=== PATIENT | male | born 1960 | race Caucasian/White ===

== ENCOUNTER 2024-03-07 17:37 | Emergency (ER) | payer BC, SELFPAY ==
[2024-03-07 17:39] VITALS: BP 164/95
--- NOTE | 2024-03-07 17:39 | ED.GENMED ---
ED Provider Triage
<Sana Guerra PA-C - Last Filed: 03/09/24 10:00>
-
Patient seen by provider in Triage?: Seen in Triage
Attestation: A medical screening examination has been initiated by a qualified medical provider. Based on the assessment performed at this time, it has been determined that an emergent medical condition may exist and the patient has been informed
that further medical evaluation and possible additional diagnostic testing may be needed.
HPI: 63yoM here after a fall off a ladder 1 hour ago. Fell 9 feet onto L side. +Head strike. No LOC. No blood thinners. C/o headache, L shoulder pain, L rib pain.
GENERAL: Alert , in no apparent distress
EYE: No visual abnormalities.
NECK: Trachea midline
ENT: No visible abnormalities.
LUNGS: No acute respiratory distress
NEUROLOGICAL: Alert and oriented
SKIN: Skin intact. No visible changes.
MUSCULOSKELETAL: Moving extremities normally
PSYCH: Normal and appropriate interaction.
This is a medical evaluation conducted in person to initiate diagnostic evaluation and provide initial therapeutics. Please see further documentation by the treating clinician.
CT head, CT cervical spine, CT chest, and L shoulder/clavicle x-rays ordered.
History of Present Illness
<Sana Guerra PA-C - Last Filed: 03/09/24 10:00>
General
Chief Complaint: Fall
Time Seen by Provider: 03/07/24 20:41
<Jah Puentes PA-C - Last Filed: 03/07/24 23:09>
General
Source: patient
History of Present Illness
History of Present Illness:
63-year-old male with past medical history of hypertension presenting to the emergency department after he fell approximately 9 feet from a ladder onto the left side of his body noting pain to the left shoulder/clavicle region as well as mild
headache and a feeling 'somewhat out of it'. Patient was at home at time of injury. Denies any loss of consciousness, vomiting, vision changes. No use of anticoagulants. No other extremity related injuries. Did not take anything for pain prior
to arrival.
Past History
<Sana Guerra PA-C - Last Filed: 03/09/24 10:00>
Past History
ED Past Medical History: HTN and Hypercholesterolemia
ED Past Surgical History: None and Tonsilectomy
Patient has exhibited threatening behavior?: No
PSI?: No
Social History
Tobacco: Non-smoker
<Jah Puentes PA-C - Last Filed: 03/07/24 23:09>
Past History
ED Past Surgical History: Appendectomy
Social History
Alcohol: Occasional
Drug: None
Personal:
Living: with family
Review of Systems
<Jah Puentes PA-C - Last Filed: 03/07/24 23:09>
Review of Systems
All Other Systems: ROS reviewed and negative except as documented in HPI and ROS
Phy Exam
<Jah Puentes PA-C - Last Filed: 03/07/24 23:09>
Physical Exam
Physical Exam:
GENERAL: Alert , in no apparent distress
EYE: clear conjunctiva b/l
HEAD: NCAT
NECK: Mild left paracervical tenderness
ENT: o/p clr, mmm.
CARDIAC: Regular rate and rhythm .
LUNGS: Clear breath sounds bilaterally, no acute respiratory distress, no wheezes/rales/rhonchi
ABDOMEN: Soft, without focal tenderness, no r/g, no cvat
NEUROLOGICAL: Alert and oriented
SKIN: Warm and dry, skin intact.
MUSCULOSKELETAL: No edema, well perfused. Tenderness over the left AC joint and somewhat limited range of motion left shoulder secondary to pain but extremities otherwise warm and well-perfused and neurovascularly intact
PSYCH: Normal and appropriate interaction.
Scores
<Jah Puentes PA-C - Last Filed: 03/07/24 23:09>
Heart Failure Risk
Heart Failure Risk Score: Not Applicable
Heart Score for Chest Pain Patients
STEMI patient?: Not applicable
Withdrawal Assessment of Alcohol
Withdrawal Assessment Completed?: Not applicable
Course
<Sana Guerra PA-C - Last Filed: 03/09/24 10:00>
Orders/Labs/Results
Orders:
Orders
03/07/24 17:43
CT Cervical Spine W/o Iv Contr Urgent
Comment:
Reason For Exam: Neck pain, fell off ladder
CT Chest W/o Iv Contrast Urgent
Comment:
Reason For Exam: L sided rib pain, fall off ladder
CT Head W/o Iv Contrast Urgent
Comment:
Reason For Exam: Head injury, fell off ladder
CR Shoulder - Left Min 2 View* Urgent
Comment:
Reason For Exam: fall off ladder
Clavicle Complete, Left CR [CR Clavicle - Left Complete ] Urgent
Comment:
Reason For Exam: fall off ladder
03/07/24 21:42
Sling Left-Treatment ONCE
03/07/24 21:45
CT Head W/o Iv Contrast Urgent
Comment:
Reason For Exam: 4 mm hyperdensity inferior right cerebellar region
Vital Signs
Initial and Last Documented VS:
Initial Vital Signs
Temp Pulse Resp BP Pulse Ox
98.0 F 86 18 164/95 97
03/07/24 17:39 03/07/24 17:39 03/07/24 17:39 03/07/24 17:39 03/07/24 17:39
Last Documented Vital Signs
Temp Pulse Resp BP Pulse Ox
98.1 F 66 18 137/91 98
03/07/24 19:50 03/07/24 23:13 03/07/24 17:39 03/07/24 23:13 03/07/24 23:13
<Jah Puentes PA-C - Last Filed: 03/07/24 23:09>
Orders/Labs/Results
Orders:
Orders
03/07/24 17:43
CT Cervical Spine W/o Iv Contr Urgent
Comment:
Reason For Exam: Neck pain, fell off ladder
CT Chest W/o Iv Contrast Urgent
Comment:
Reason For Exam: L sided rib pain, fall off ladder
CT Head W/o Iv Contrast Urgent
Comment:
Reason For Exam: Head injury, fell off ladder
CR Shoulder - Left Min 2 View* Urgent
Comment:
Reason For Exam: fall off ladder
Clavicle Complete, Left CR [CR Clavicle - Left Complete ] Urgent
Comment:
Reason For Exam: fall off ladder
03/07/24 21:42
Sling Left-Treatment ONCE
03/07/24 21:45
CT Head W/o Iv Contrast Urgent
Comment:
Reason For Exam: 4 mm hyperdensity inferior right cerebellar region
Vital Signs
Initial and Last Documented VS:
Initial Vital Signs
Temp Pulse Resp BP Pulse Ox
98.0 F 86 18 164/95 97
03/07/24 17:39 03/07/24 17:39 03/07/24 17:39 03/07/24 17:39 03/07/24 17:39
Last Documented Vital Signs
Temp Pulse Resp BP Pulse Ox
98.1 F 66 18 137/91 98
03/07/24 19:50 03/07/24 23:13 03/07/24 17:39 03/07/24 23:13 03/07/24 23:13
<Jah Puentes PA-C - Last Filed: 03/07/24 23:09>
MDM/Problems Addressed
Differential Diagnosis Includes:
Contusion, concussion, intracranial bleeding, clavicle fracture, AC joint separation/sprain, rib fractures
MDM/Problems Addressed:
63-year-old male presenting to the emergency department for evaluation after 9ft fall from a ladder. Patient noting left-sided pain mostly around the left shoulder area. Did have head injury but no reported loss consciousness. Given the mechanism
head, cervical spine and chest CT were ordered. X-rays of the shoulder and clavicle ordered. Patient declining anything for pain.
<Jah Puentes PA-C - Last Filed: 03/07/24 23:09>
*Radiology
Radiology exam reviewed: radiology read reviewed
*Pulse Oximetry
Patient hypoxic: no
*Critical Care Note
Total Time (30-74mins, 75-104mins- exclusive of procedures): Not Applicable
<Jah Puentes PA-C - Last Filed: 03/07/24 23:09>
Patient Management
Escalation/DeEscalation of care consider admission/obs:
CT scans are largely unremarkable. There was a noted 4 mm hyperdensity within the inferior right cerebellar hemisphere which is likely benign however radiology is recommending a repeat scan in 4 to 6 hours. This was reordered for further
evaluation. Patient does appear to have mild AC separation on the left. Will treat with sling and outpatient orthopedic follow-up.
Repeat head CT shows stability of the 4 mm hyperdensity. At this time patient is stable for discharge home and aware of return precautions to the ER. Information for orthopedics provided.
ED Attending Note
<Sana Guerra PA-C - Last Filed: 03/09/24 10:00>
-
Portions of this chart may have been created with voice recognition software.� Occasional wrong word or��sound alike� substitutions may have occurred due to the inherent limitations of voice recognition software.
Discharge Plan
Departure
Patient Disposition: Home (Routine Discharge)
Date of Disposition: 03/07/24
Time of Disposition: 23:03
Patient with high blood pressure during this ER visit?: Yes
Discharge Problem:
Fall from ladder, Head injury, Sprain of left acromioclavicular joint
Instructions: Head Injury in Adults (DC)
Prescriptions:
No Action
propranolol 80 mg capsule,extended release 24hr
80 mg PO DAILY
multivitamin Tablet
1 tab PO DAILY
turmeric
553 mg PO DAILY
acetaminophen [acetaminophen] 325 mg tablet
650 mg PO Q4HPRN PRN (Reason: mild pain) Qty: 1 0RF
ibuprofen 200 mg tablet
400 - 600 mg PO Q6HPRN PRN (Reason: moderate pain) Qty: 1 0RF
Referrals:
Edgard Garcia DO [Family Provider] -
Norberto Santillan MD [Active] - (Ortho)
Interventions
Interventions:
*Risk Screen - Suicide Last Done: 03/07/24 23:13
*General Assessment Last Done: 03/07/24 23:13
*Neglect/Abuse Screening Last Done: 03/07/24 23:13
ED- Fall Risk Assessment Last Done: 03/07/24 23:13
*ED COVID-19 Vaccine History Last Done: 03/07/24 23:13
*Nursing Disposition Last Done: 03/07/24 23:13
ED-Musculoskeletal Assessment Last Done: 03/07/24 20:54
ED- Neurological Assessment Last Done: 03/07/24 20:54
Discharge Date and Time
Discharge Date/Time: 03/07/24 23:14
Print Language: MONGOLIAN
[2024-03-07 19:50] VITALS: BP 151/93
[2024-03-07 20:55] VITALS: BP 151/98
[2024-03-07 23:13] VITALS: BP 137/91
== END 2024-03-07 23:14 | disposition home or self-care (01) ==
LOC: EMR 17:37
PROVIDERS: EMERGENCY PHYSICIAN Student in an Organized Health Care Education/Training Program; FAMILY PHYSICIAN Family Medicine
DX: S09.90XA Unspecified injury of head, initial encounter (principal); S43.52XA Sprain of left acromioclavicular joint, initial encounter; W11.XXXA Fall on and from ladder, initial encounter; I10 Essential (primary) hypertension; E78.00 Pure hypercholesterolemia, unspecified; Z90.49 Acquired absence of other specified parts of digestive tract
CPT/HCPCS: 99284; 70450; 71250; 72125; 73000; 73030